=== PATIENT | male | born 1995 | race Two or more races ===

== ENCOUNTER 2021-06-14 22:21 | Emergency (ER) | payer SELFPAY ==
[~2021-06-14] VITALS: Ht 152.4 cm; Wt 54.2 kg
--- NOTE | 2021-06-15 00:27 | PHYS DOC ---
Past Medical History Past Surgical History: Other Additional Past Surgical Histo: KNEE General Adult EDM: Chief Complaint: EYE PROBLEMS HPI: HPI: Patient is a 25-year-old male who presents to the emergency department for right eyelid redness and swelling as well as some conjunctival hemorrhage to the right eye. Patient reports that his symptoms started yesterday. He reports that he was jumping at [employer] with his son when their heads collided. He denies any loss of vision or blurred vision, loss of consciousness, nausea, vomiting, seizure-like activity, blood thinner use. He reports some pain to his right eye. Review of Systems: Review of Systems: Eyes: See HPI ENT: See HPI GI: see HPI Integument: see HPI Neurologic: see HPI Heart Score: C/O Chest Pain: N/A Risk Factors: Risk Factors: DM, Current or recent (<one month) smoker, HTN, HLP, family history of CAD, obesity. Risk Scores: Score 0 - 3: 2.5% MACE over next 6 weeks - Discharge Home Score 4 - 6: 20.3% MACE over next 6 weeks - Admit for Clinical Observation Score 7 - 10: 72.7% MACE over next 6 weeks - Early Invasive Strategies Allergies: Allergies: Allergies Coded Allergies Type Severity Reaction Last Updated Verified No Known Drug Allergies 06/14/21 No Physical Exam: PE: Constitutional: Well developed, well nourished, no acute distress, non-toxic appearance. [] HENT: Normocephalic, pain with palpation of upper orbital of right eye,mild swelling onted to righht upper eye lid and ecchymosis, bilateral external ears normal, oropharynx moist, no oral exudates, nose normal. [] Eyes: PERRL, EOMI, subconjunctival hemorrhage, 4mm bilaterally, no nystagmus, no discharge. [] Neck: Normal range of motion, no stridor, no tenderness Cardiovascular:Heart rate regular rhythm, no murmur [] Lungs & Thorax: Bilateral breath sounds clear to auscultation [] Abdomen: Bowel sounds normal, soft, no tenderness, no masses, no pulsatile masses. [] Skin: Warm, dry, no erythema, no rash. [] Back: Normal ROM Extremities: No tenderness, no cyanosis, no clubbing, ROM intact, no edema. [] Neurologic: Alert and oriented X 3, normal motor function, normal sensory functi on, no focal deficits noted. [] Psychologic: Affect normal, judgement normal, mood normal. [] Current Patient Data: Vital Signs: Vital Signs Date Time Temp Pulse Resp B/P (MAP) Pulse Ox O2 Delivery O2 Flow Rate FiO2 06/14/21 22:58 98.0 62 18 128/75 (92) 99 Room Air 98.0 EKG: EKG: [] Radiology/Procedures: Radiology/Procedures: []PROCEDURE: CT HEAD AND MAXILLOFACIAL WO EXAMINATION: CT HEAD AND MAXILLOFACIAL WO CLINICAL HISTORY: Head and facial pain following injury. TECHNIQUE: Serial axial images without IV contrast were obtained from the vertex to the foramen magnum. Spiral high resolution axial unenhanced images were obtained through the facial bones with sagittal and coronal planar reconstructions. CT Dose Reduction Employed: One or more of the following individualized dose reduction techniques were utilized for this examination: 1. Automated exposure control 2. Adjustment of the mA and/or kV according to patient size 3. Use of iterative reconstruction technique. COMPARISON: None FINDINGS: BRAIN: Acute Change: No evidence of an acute contusion or other acute parenchymal process. Hemorrhage: No evidence of acute intracranial hemorrhage. Mass Lesion/Mass Effect: No evidence of intracranial mass or extraaxial fluid collection. No significant mass effect. Parenchyma: Parenchyma within normal limits for age. Ventricles: Ventricles within normal limits for age. Skull Base: No evidence of acute calvarial fracture. MAXILLOFACIAL: Soft Tissues: No significant superficial soft tissue swelling. Facial Bones: No evidence of acute facial bone fracture. Orbits: No evidence of acute orbital fracture. Globes are intact. Soft tissue planes of the orbits maintained. Paranasal Sinuses: Minimal secretions in the right sphenoid sinus. IMPRESSION: No evidence of acute intracranial abnormality. No evidence of acute facial bone fracture. Electronically signed by: Ren Diggs DO (06/15/2021 12:53 AM) [facility] DICTATED and SIGNED BY: REN DIGGS DO DATE: 06/15/21 0048 Course & Med Decision Making: Course & Med Decision Making Pertinent Labs and Imaging studies reviewed. (See chart for details) [] Patient presents to the emergency department for a subconjunctival hemorrhage after he hit his head with his child's head yesterday while jumping [place] [employer] with. Patient does have pain with palpation of his right orbital. Therefore, CT imaging of his head and maxillofacial was performed. Tetracaine and fluorescein used to evaluate for corneal abrasion. Visual acuities obtained in the emergency department. Patient's CT imaging showed no acute findings. Patient was not noted to have a corneal abrasion. Patient referred for ophthalmology. He is advised to place ice on his eye swelling. Visual acuities: l. eye 20/25 r. eye 20/40 bilateral 20/20 I discussed with patient all findings and diagnostic testing as well as the need to follow-up with PCP for further evaluation and treatment or return to the ER if any new or worsening symptoms. Strict return precautions were also discussed at length. Patient voiced understanding and agreement with the plan. Patient is hemodynamically stable at the time of disposition. Dragon Disclaimer: Zaynab Disclaimer: This electronic medical record was generated, in whole or in part, using a voice recognition dictation system. Departure Departure Impression: Primary Impression: Subconjunctival hemorrhage Qualified Codes: H11.31 - Conjunctival hemorrhage, right eye Disposition: HOME / SELF CARE / HOMELESS Condition: GOOD Referrals: NO PCP (PCP) Patient Instructions: Subconjunctival Hemorrhage Additional Instructions: You were seen in the emergency department today for some conjunctival hemorrhage. Imaging was performed of your head and face which showed no acute findings. You can apply ice to your eye to help with swelling. The bleeding should resolve on its own in approximately 10 to 14 days. Follow-up with an depilatory painter, 1 is attached to this discharge paperwork. I would advise you to contact them in follow-up within 7 days. If your bleeding worsens or does not improve or you develop blurred vision, vision loss, intractable nausea or vomiting, confusion, poor coordination or any new or worsening concerns please return to the emergency department immediately. Dr. Clau Grider [phone] (opthamology) ROBER CAMACHO APRN Jun 15, 2021 00:27
--- NOTE | 2021-06-15 00:55 | RAD ---
EXAMINATION: CT HEAD AND MAXILLOFACIAL WO CLINICAL HISTORY: Head and facial pain following injury. TECHNIQUE: Serial axial images without IV contrast were obtained from the vertex to the foramen magnum. Spiral high resolution axial unenhanced images were obtained through the facial bones with sagittal a nd coronal planar reconstructions. CT Dose Reduction Employed: One or more of the following individualized dose reduction techniques wer e utilized for this examination: 1. Automated exposure control 2. Adjustment of the mA and/or kV ac cording to patient size 3. Use of iterative reconstruction technique. COMPARISON: None FINDINGS: BRAIN: Acute Change: No evidence of an acute contusion or other acute parenchymal process. Hemorrhage: No evidence of acute intracranial hemorrhage. Mass Lesion/Mass Effect: No evidence of intracranial mass or extraaxial fluid collection. No signific ant mass effect. Parenchyma: Parenchyma within normal limits for age. Ventricles: Ventricles within normal limits for age. Skull Base: No evidence of acute calvarial fracture. MAXILLOFACIAL: Soft Tissues: No significant superficial soft tissue swelling. Facial Bones: No evidence of acute facial bone fracture. Orbits: No evidence of acute orbital fracture. Globes are intact. Soft tissue planes of the orbits ma intained. Paranasal Sinuses: Minimal secretions in the right sphenoid sinus. IMPRESSION: No evidence of acute intracranial abnormality. No evidence of acute facial bone fracture. Electronically signed by: Ren Melendrez DO (06/15/2021 12:53 AM) [facility]
[2021-06-15] MEDS: FLUORESCEIN OPHTH TEST STRIP. OD ONE (01:00)
[2021-06-15] MEDS: TETRACAINE 0.5% OPHTH SOLUTION 4ML BOTTLE. OD ONE (01:00)
[2021-06-15 02:12] VITALS: BP 128/64
== END 2021-06-15 02:11 | disposition home or self-care (01) ==
LOC: ER 22:21
DX: H11.31 Conjunctival hemorrhage, right eye (principal); R51.9 Headache, unspecified
CPT/HCPCS: 70450; 70486; 99284-25